=== PATIENT | male | born 1950 | race Caucasian/White ===

== ENCOUNTER 2020-06-06 10:20 | Outpatient (REF) | payer MEDICARE, SELFPAY ==
[2020-06-06 12:01] LABS: Anion Gap 13 (12-20); Blood Urea Nitrogen 10 mg/dL (9-16); Carbon Dioxide 24 mmol/L (22-29); Chloride 107 mmol/L (96-108); Estimated Glomerular Filt Rate > 60; Potassium 4.3 mmol/L (3.3-5.1); Sodium 140 mmol/L (135-145)
== END 2020-06-06 10:21 | disposition home or self-care (01) ==
LOC: HO.HMGCLDS 10:20
PROVIDERS: PCP Family Medicine; Visit Provider Family Medicine
DX: I10 Essential (primary) hypertension (principal)
CPT/HCPCS: 36415; 80051; 82565; 84520

== ENCOUNTER 2021-02-23 10:54 | Outpatient (REF) | payer MEDICARE, SELFPAY ==
[2021-02-23 14:41] LABS: Anion Gap 16 (12-20); Blood Urea Nitrogen 14 mg/dL (9-16); Carbon Dioxide 23 mmol/L (22-29); Chloride 106 mmol/L (96-108); Estimated Glomerular Filt Rate > 60; Sodium 141 mmol/L (135-145)
== END 2021-02-23 10:55 | disposition home or self-care (01) ==
LOC: HO.HMGCLDS 10:54
PROVIDERS: PCP Family Medicine; Visit Provider Family Medicine
DX: I10 Essential (primary) hypertension (principal)
CPT/HCPCS: 36415; 80051; 82565; 84520

== ENCOUNTER 2021-11-30 10:19 | Outpatient (REF) | payer MEDICARE, SELFPAY ==
[2021-11-30 12:31] LABS: Anion Gap 15 (12-20); Blood Urea Nitrogen 10 mg/dL (9-16); Carbon Dioxide 26 mmol/L (22-29); Chloride 103 mmol/L (96-108); Estimated Glomerular Filt Rate > 60; Potassium 4.4 mmol/L (3.3-5.1); Sodium 140 mmol/L (135-145)
== END 2021-11-30 10:20 | disposition home or self-care (01) ==
LOC: HO.HMGCLDS 10:19
PROVIDERS: PCP Family Medicine; Visit Provider Family Medicine
DX: I10 Essential (primary) hypertension (principal); N40.1 Benign prostatic hyperplasia with lower urinary tract symptoms; R35.1 Nocturia; Z12.5 Encounter for screening for malignant neoplasm of prostate
CPT/HCPCS: 36415; 80051; 82565; 84153; 84520

== ENCOUNTER 2022-05-21 08:53 | Outpatient (REF) | payer MEDICARE, SELFPAY ==
--- NOTE | ~2022-05-21 | US_ITS ---
EXAMINATION: NONINVASIVE ASSESSMENT OF THE ARTERIES OF BOTH LOWER EXTREMITIES Louis Sotomayor MD CLINICAL INFORMATION: Peripheral vascular disease. TECHNIQUE: Bilateral lower extremity duplex ultrasound was performed with velocity measurements and waveform analysis in the common femoral arteries, profunda femoris arteries, proximal mid and distal superficial femoral arteries, popliteal arteries and tibial vessels. This study was performed only at rest. COMPARISON: None available. FINDINGS: Velocities in cm/sec and phasicity as well as the presence of plaque are reported below. RIGHT LEG: Minimal plaque is seen and multiphasic flow is noted throughout with the exception of monophasic flow in the profunda femoris artery. Common Femoral: 103 Profunda Femoris: 96 Proximal SFA: 107 Mid SFA: 107 Distal SFA: 102 Popliteal: 52 Tibial: 58 LEFT LEG: The left common femoral artery is occluded and the SFA fills via retrograde flow in the profunda femoris presumably through reconstituted collaterals. Decreased monophasic flow is present throughout the lower extremity. Common Femoral: Occluded Profunda Femoris: 61 Proximal SFA: 57 Mid SFA: 70 Distal SFA: 65 Popliteal: 46 Tibial: 43 US/US arterial duplex LE BI IMPRESSION: Marked peripheral vascular disease on the left with an occluded common femoral artery with distal monophasic flow through collaterals provided by the profunda femoris.
== END 2022-05-21 08:54 | disposition home or self-care (01) ==
LOC: HO.US 08:53
PROVIDERS: PCP Family Medicine; Visit Provider Family Medicine
DX: R09.89 Other specified symptoms and signs involving the circulatory and respiratory systems (principal); Z86.79 Personal history of other diseases of the circulatory system
CPT/HCPCS: 93925

== ENCOUNTER 2022-10-16 11:49 | Outpatient (REF) | payer MEDICARE, SELFPAY ==
[2022-10-16 14:23] LABS: Alanine Aminotransferase 40 U/L (0-40); Albumin Level 4.1 g/dL (3.5-5.0); Alkaline Phosphatase 70 U/L (39-117); Anion Gap 10 (12-20); Aspartate Amino Transferase 23 U/L (5-37); Bilirubin Total 1.2 mg/dL (0.0-1.0); Blood Urea Nitrogen 10 mg/dL (9-16); Calcium 9.5 mg/dL (8.4-10.2); Carbon Dioxide 24 mmol/L (22-29); Chloride 111 mmol/L (96-108); Cholesterol 73 mg/dL (<200); Estimated Glomerular Filt Rate > 60; Glucose Fasting 107 mg/dL (60-99); HDL Cholesterol 37 mg/dL (>40); LDL Cholesterol Calculated 25 mg/dL (<100); Potassium 3.8 mmol/L (3.3-5.1); Sodium 141 mmol/L (135-145); Total Protein 7.8 g/dL (6.5-8.0); Triglycerides 55 mg/dL (<150)
== END 2022-10-16 11:50 | disposition home or self-care (01) ==
LOC: HO.HMGCLDS 11:49
PROVIDERS: PCP Family Medicine; Visit Provider Family Medicine
DX: I10 Essential (primary) hypertension (principal); R53.83 Other fatigue; E78.00 Pure hypercholesterolemia, unspecified; Z79.899 Other long term (current) drug therapy
CPT/HCPCS: 36415; 80053; 80061; 82550

== ENCOUNTER 2023-05-09 10:37 | Outpatient (REF) | payer MEDICARE, SELFPAY ==
[2023-05-09 13:49] LABS: Alanine Aminotransferase 37 U/L (0-40); Anion Gap 16 (12-20); Aspartate Amino Transferase 22 U/L (5-37); Blood Urea Nitrogen 12 mg/dL (9-16); Carbon Dioxide 25 mmol/L (22-29); Chloride 106 mmol/L (96-108); Estimated Glomerular Filt Rate > 60; Potassium 4.7 mmol/L (3.3-5.1); Sodium 142 mmol/L (135-145)
== END 2023-05-09 10:38 | disposition home or self-care (01) ==
LOC: HO.HMGCLDS 10:37
PROVIDERS: PCP Family Medicine; Visit Provider Family Medicine
DX: I10 Essential (primary) hypertension (principal); E78.00 Pure hypercholesterolemia, unspecified; Z79.899 Other long term (current) drug therapy
CPT/HCPCS: 36415; 80051; 82550; 82565; 84450; 84460; 84520

== ENCOUNTER 2023-12-11 10:18 | Outpatient (REF) | payer MEDICARE, SELFPAY ==
[2023-12-11 13:40] LABS: Alanine Aminotransferase 42 U/L (0-40); Anion Gap 15 (12-20); Aspartate Amino Transferase 32 U/L (5-37); Blood Urea Nitrogen 14 mg/dL (9-16); Carbon Dioxide 22 mmol/L (22-29); Chloride 106 mmol/L (96-108); Estimated Glomerular Filt Rate > 60; Potassium 4.4 mmol/L (3.3-5.1); Sodium 139 mmol/L (135-145)
== END 2023-12-11 10:19 | disposition home or self-care (01) ==
LOC: HO.HMGCLDS 10:18
PROVIDERS: PCP Family Medicine; Visit Provider Family Medicine
DX: I10 Essential (primary) hypertension (principal); E78.00 Pure hypercholesterolemia, unspecified; Z79.899 Other long term (current) drug therapy
CPT/HCPCS: 36415; 80051; 82550; 82565; 84450; 84460; 84520

== ENCOUNTER 2024-03-24 07:31 | Outpatient (REF) | payer MEDICARE, SELFPAY | END 2024-03-24 07:32 | disposition home or self-care (01) | LOC: HO.XRAY 07:31 | PROVIDERS: PCP Family Medicine; Visit Provider Family Medicine | DX: M54.32 Sciatica, left side (principal) | CPT/HCPCS: 72100 ==

== ENCOUNTER → 2024-03-24 07:37 | Outpatient (BNV) | payer MEDICARE, SELFPAY | PROVIDERS: PCP Family Medicine; Visit Provider Radiology Diagnostic Radiology | DX: M47.896 Other spondylosis, lumbar region (principal) | CPT/HCPCS: 72100 ==

== ENCOUNTER 2024-04-20 08:00 | Outpatient (RCR) | payer MEDICARE, SELFPAY | END 2024-04-20 08:42 | disposition home or self-care (01) | LOC: HO.PTCHIC 08:00 | PROVIDERS: PCP Family Medicine; Visit Provider Family Medicine | DX: M54.32 Sciatica, left side (principal) | CPT/HCPCS: 97110; 97161 ==

== ENCOUNTER 2024-06-08 08:16 | Outpatient (REF) | payer MEDICARE, SELFPAY ==
[2024-06-08 10:22] LABS: Alanine Aminotransferase 43 U/L (0-40); Anion Gap 15 (12-20); Aspartate Amino Transferase 23 U/L (5-37); Blood Urea Nitrogen 20 mg/dL (9-16); Carbon Dioxide 23 mmol/L (22-29); Chloride 107 mmol/L (96-108); Estimated Glomerular Filt Rate > 60; Potassium 4.1 mmol/L (3.3-5.1); Sodium 141 mmol/L (135-145)
== END 2024-06-08 08:17 | disposition home or self-care (01) ==
LOC: HO.HMGCLDS 08:16
PROVIDERS: PCP Family Medicine; Visit Provider Family Medicine
DX: I10 Essential (primary) hypertension (principal); E78.00 Pure hypercholesterolemia, unspecified; Z79.899 Other long term (current) drug therapy
CPT/HCPCS: 36415; 80051; 82550; 82565; 84450; 84460; 84520

== ENCOUNTER 2024-10-07 08:36 | Outpatient (AMB) | payer MEDICARE, SELFPAY ==
--- NOTE | 2024-10-07 08:35 | MHC.PC.OV ---
Vital Signs 10/07/24 08:42 Height 6 ft 1 in Weight 96.162 kg BMI 28.0 BP 188/90 H Respiration 16 Pulse 102 H Pulse Source Pulse Oximeter Temp 98.6 F Temp Source Temporal Artery Scan Pulse Oximetry (%) 96 Oxygen Delivery Method Room Air Intake Visit Reasons: 3 MO F/UP - FLOR PT - see comments Machine Precision Etcher Required: No Accompanied by: Self / Same As Patient Allergies No Known Allergies Allergy (Verified 10/07/24 08:36) Tobacco use date assessed: 10/07/24 Fall risk assessment: No Falls in past year Last assessed Fall Risk: 10/07/24 Dental Screening Dental Screen Date: 10/07/24 Did you have a dental visit in the last 12 months?: No Did you have a dental problem in the last 6 months where you did not have access to dental care?: No Was dental information given to patient?: No HPI HPI Comments History of Present Illness Details 74-year-old male with history of hypertension, left bundle branch block, peripheral arterial disease without claudication, BPH, left-sided sciatica, solitary lung nodule, nontoxic single thyroid nodule presents to the office today for management of chronic conditions and to establish care. Hypertension-has known history of white coat hypertension. Brings blood pressures in from home which are well-controlled with systolic blood pressures primarily in the low 130s and diastolic pressures in the 60s. Compliant with losartan and metoprolol Peripheral arterial disease-follows with vascular surgery at [facility]. Has not needed any procedures. Denies any claudication. Chyron Operator screening GRAHAM upcoming Left-sided sciatica-stable. Completed physical therapy but continues with exercises at home. No ongoing radiculopathy or weakness. No bowel/bladder dysfunction Detached retina-follows with TBI care as well as Dr. Lopez Left bundle branch block-no chest pain, no history of coronary event. Underwent echocardiogram in 2019- Without any regional wall motion abnormality. No significant valvular pathology and left ventricular systolic function was within normal limits with EF 55-60%. Concerns: none Health Maintenance: Declines lung cancer screening Declines colonoscopy ROS: General: No fevers, malaise, unintentional weight loss HEENT: No blurred vision, diplopia. No sore throat, nasal congestion, rhinorrhea, sinus pain, ear pain Cardiovascular: No chest pain, palpitations, or leg edema Respiratory: No shortness of breath, wheezing, cough GI: No abdominal pain, nausea, vomiting, diarrhea, constipation, melena, hematochezia : No dysuria, hematuria, increased urinary frequency, decreased urinary output MSK: No myalgia, back pain Neuro: No headaches, weakness, paresthesias Skin: No rashes or lesions EXAM: Constitutional - Awake and Alert, No apparent distress Eyes - PERRL Cardiovascular - S1S2, RRR, No edema Respiratory - Normal lung expansion, Normal respiratory effort, No respiratory distress, CTA bilaterally Extremities - no calf tenderness bilaterally, no swelling Skin - Warm/Dry Neurological - Alert & oriented x3 Psychological - Appropriate affect [facility] Medical History (Updated 10/07/24 @ 09:46 by SHRADDHA Chavez) Retinal detachment Nontoxic thyroid nodule Pulmonary nodule BPH w/o urinary obs/LUTS Left sided sciatica Peripheral arterial disease Left bundle branch block Hypertension Surgical History (Updated 10/07/24 @ 09:46 by SHRADDHA Chavez) S/P eye surgery Social History Housing: House Patient Tobacco Use Status: Former Tobacco user (Quite in 2016) e-Cigarette/Vaping Use: Never Used service: No Current occupational status: retired Cognitive needs: No Hearing needs: No Vision needs: Yes (Rx glasses) Questionnaire PHQ-9 Over the last 2 weeks, how often have you been bothered by any of the following problems? 1. Little interest or pleasure in doing things: not at all 2. Feeling down, depressed, or hopeless: not at all 3. Trouble falling or staying asleep, or sleeping too much: not at all 4. Feeling tired or having little energy: not at all 5. Poor appetite or overeating: not at all 6. Feeling bad about yourself - or that you are a failure or have let yourself or your family down: not at all 7. Trouble concentrating on things, such as reading the newspaper or watching television: not at all 8. Moving or speaking so slowly that other people could have noticed. Or the opposite - being so fidgety or restless that you have been moving around a lot more than usual: not at all 9. Thoughts that you would be better off or of hurting yourself in some way: not at all Total score: 0 Depression Screening Interpretation: Negative Depression Screening Done: Yes [id number] - PHQ-9 Billing: Yes Source: Developed by Drs. Rylan Toribio, Renea Cardenas, Juancho Olson and colleagues, with an educational john from [employer]. Physical exam (Primary Care) Vital Signs: Last Vital Signs Temp 98.6 F 10/07/24 08:42 Pulse 102 H 10/07/24 08:42 Resp 16 10/07/24 08:42 BP 188/90 H 10/07/24 08:42 Pulse Ox 96 10/07/24 08:42 Oxygen Delivery Method Room Air 10/07/24 08:42 BMI result Body Mass Index 28.0 Tobacco/Smoking Status: Tobacco use Status Tobacco use date assessed 10/07/24 10/07/24 08:44 Patient Tobacco Use Status Former Tobacco user (Quite 10/07/24 08:44 in 2015) e-Cigarette/Vaping Use Never Used 10/07/24 08:44 PHQ-9: PHQ-9 Score PHQ-9: Total score 0 10/07/24 09:10 Depression Screening Interpretation: Negative Coding Level of Care Code New Pt Level 4 (91947) Complex EM visit Add On G2211 Diagnoses Hypertension I10 Peripheral arterial disease I73.9 Left sided sciatica M54.32 BPH w/o urinary obs/LUTS N40.0 Additional Codes PHQ-9 - 37331 - PHQ-9 Billing: Yes ([id number]) Assessment & Plan Assessment & Plan (1) Hypertension: Code(s): I10 - Essential (primary) hypertension Category: Medical Plan: History of white coat hypertension. Blood pressure improved on recheck to 160/80. He does bring copy of all of his blood pressures at home which are well-controlled. Will go off of these blood pressures given last blood pressures with prior PCP were also within normal limits. He will continue using losartan 100 mg daily as well as metoprolol 50 mg ER. Continue monitoring (2) Peripheral arterial disease: Code(s): I73.9 - Peripheral vascular disease, unspecified Category: Medical Plan: Stable. No claudication. Continue aspirin and atorvastatin. Follow-up with vascular surgery as scheduled. Will obtain notes (3) Left sided sciatica: Code(s): M54.32 - Sciatica, left side Category: Medical Plan: Controlled at this time. Continue home exercises. Avoid known triggers (4) BPH w/o urinary obs/LUTS: Code(s): N40.0 - Benign prostatic hyperplasia without lower urinary tract symptoms Category: Medical Plan: Stable. No LUTS. We will continue monitoring Plan Follow-up in the office in 6 months, labs to be completed prior to visit Orders: Orders Lipid Panel 4 Months E04.1 - Nontoxic single thyroid nodule, I10 - Essential (primary) hypertension, I73.9 - Peripheral vascular disease, unspecified, N40.0 - Benign prostatic hyperplasia without lower urinary tract symptoms Liver Panel 4 Months E04.1 - Nontoxic single thyroid nodule, I10 - Essential (primary) hypertension, I73.9 - Peripheral vascular disease, unspecified, N40.0 - Benign prostatic hyperplasia without lower urinary tract symptoms Prostate Specific Antigen 4 Months E04.1 - Nontoxic single thyroid nodule, I10 - Essential (primary) hypertension, I73.9 - Peripheral vascular disease, unspecified, N40.0 - Benign prostatic hyperplasia without lower urinary tract symptoms Basic Metabolic Panel 4 Months E04.1 - Nontoxic single thyroid nodule, I10 - Essential (primary) hypertension, I73.9 - Peripheral vascular disease, unspecified, N40.0 - Benign prostatic hyperplasia without lower urinary tract symptoms Complete Blood Count Auto Diff 4 Months E04.1 - Nontoxic single thyroid nodule, I10 - Essential (primary) hypertension, I73.9 - Peripheral vascular disease, unspecified, N40.0 - Benign prostatic hyperplasia without lower urinary tract symptoms
[2024-10-07 08:42] VITALS: BP 188/90; PULSE 102; RESP 16; TEMP 37; O2SAT 96; BMI 28.0
== END 2024-10-07 09:08 | disposition home or self-care (01) ==
LOC: HO.HMCHD 08:36
PROVIDERS: PCP Family Medicine; Visit Provider Physician Assistant
DX: I10 Essential (primary) hypertension (principal); I73.9 Peripheral vascular disease, unspecified; M54.32 Sciatica, left side; N40.0 Benign prostatic hyperplasia without lower urinary tract symptoms

== ENCOUNTER → 2024-10-07 08:36 | Outpatient (BNVA) | payer MEDICARE, SELFPAY | PROVIDERS: PCP Family Medicine; Visit Provider Physician Assistant | DX: I10 Essential (primary) hypertension (principal); I73.9 Peripheral vascular disease, unspecified; M54.32 Sciatica, left side; N40.0 Benign prostatic hyperplasia without lower urinary tract symptoms; Z79.82 Long term (current) use of aspirin; Z79.899 Other long term (current) drug therapy; Z13.31 Encounter for screening for depression | CPT/HCPCS: 96127; 99202 ==